=== PATIENT | female | born 2000 | race Caucasian/White ===

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

== ENCOUNTER 2020-06-23 21:37 | Emergency (ER) | payer SELFPAY ==
[2020-06-23] MEDS ORDERED: ACETAMINOPHEN 325 MG TABLET PO ONE (22:19)
--- NOTE | 2020-06-23 22:20 | ER Document Report ---
ED Medical Screen (RME) - General Chief Complaint: Abscess Stated Complaint: POSSIBLE ABSCESS Time Seen by Provider: 06/23/20 22:16 Mode of Arrival: Ambulatory Information source: Patient Notes: HPI; 19-year-old female presents to the emergency room complaining of a vaginal cyst for the past 3 days. No history of previous abscesses. States symptoms got worse after performing masturbation earlier today. Denies any vaginal discharge. No fevers. No urinary symptoms. PE: Alert and oriented x3. Mild distress noted. Lungs: Clear to auscultation without rales, rhonchi, wheezes. Heart: Regular rate rhythm without murmurs, rubs, gallops. Unable to do full assessment in triage. I have greeted and performed a rapid initial assessment of this patient. A comprehensive ED assessment and evaluation of the patient, analysis of test results and completion of the medical decision making process will be conducted by additional ED providers. I have specifically instructed the patient or family members with the patient to immediately return to any nursing staff should anything change in the patient's condition or with their chief complaint. TRAVEL OUTSIDE OF THE [place] IN LAST 30 DAYS: No - Related Data Allergies/Adverse Reactions: No Known Allergies Allergy (Verified 04/25/17 17:07) Past Medical History Renal/ Medical History: Denies: Hx Peritoneal Dialysis Physical Exam - Vital signs Vitals: Temp Pulse Resp BP Pulse Ox 98.9 F 87 18 123/95 H 97 06/23/20 21:51 06/23/20 21:51 06/23/20 21:51 06/23/20 21:51 06/23/20 21:51 Course - Vital Signs Vital signs: Temp Pulse Resp BP Pulse Ox 98.9 F 87 18 123/95 H 97 06/23/20 21:51 06/23/20 21:51 06/23/20 21:51 06/23/20 21:51 06/23/20 21:51
[2020-06-23 23:31] LABS: APPEARANCE,URINE SLIGHTLY-CLOUDY; BILIRUBIN,URINE NEGATIVE (NEGATIVE); COLOR,URINE YELLOW; GLUCOSE, URINE NEGATIVE (NEGATIVE); KETONES,URINE NEGATIVE (NEGATIVE); LEUKOCYTE ESTERASE,URINE NEGATIVE (NEGATIVE); NITRITE,URINE NEGATIVE (NEGATIVE); PROTEIN,URINE NEGATIVE (NEGATIVE); URINE SPECIFIC GRAVITY 1.018; UROBILINOGEN,URINE NEGATIVE mg/dL (<2.0)
[2020-06-24] MEDS ORDERED: LIDOCAINE 1% INJ-PF (10 MG/ML) 30 ML SDV INJ ONE (03:24)
[2020-06-24] MEDS ORDERED: CEFTRIAXONE INJ 250 MG VIAL IM ONE (05:05)
[2020-06-24] MEDS ORDERED: DOXYCYCLINE HYCLATE 100 MG TABLET PO ONE (05:05)
[2020-06-24 05:19] LABS: EPITHELIALS (WET MOUNT) 3+ EPITHELIALS SEEN; T.VAGINALIS (WET MOUNT) NO TRICHOMONAS SEEN; WBCS (WET MOUNT) FEW WBCS SEEN; YEAST (WET MOUNT) NO YEAST SEEN
--- NOTE | 2020-06-24 05:50 | ER Document Report ---
ED General - General Mode of Arrival: Ambulatory TRAVEL OUTSIDE OF THE [place] IN LAST 30 DAYS: No - General Chief Complaint: Vaginal Pain Stated Complaint: POSSIBLE ABSCESS Time Seen by Provider: 06/23/20 22:16 Primary Care Provider: RAFI BOWLES MD [ACTIVE PROVISIONAL STAFF] - Follow up as needed - [facility] Notes: 19-year-old female with no significant past medical history presents with gradual onset gradually worsening constant moderate vaginal pain and pelvic pain without associated symptoms aggravated by intercourse for the past several days. Patient says it feels like there is a bump inside her vagina, but she has not felt a bump just vaginal pain. Patient is monogamous without protection with one partner, but she has suspected that partner has been cheating on her. Patient denies any fever, vomiting, abdominal pain, STD history, discharge, immune compromise history, prior episodes (WILFREDO OV) - Related Data Allergies/Adverse Reactions: No Known Allergies Allergy (Verified 04/25/17 17:07) Past Medical History - General Information source: Patient - Social History Smoking Status: Never Smoker Family History: Reviewed & Not Pertinent Patient has homicidal ideation: No Renal/ Medical History: Denies: Hx Peritoneal Dialysis Review of Systems - Review of Systems Notes: REVIEW OF SYSTEMS: CONSTITUTIONAL : Denies fever, chills, or sweats. EENT: Denies recent cold/sinus symptoms, denies throat pain CARDIOVASCULAR: Denies chest pain, YEYO RESPIRATORY: Denies cough, denies shortness of breath. GASTROINTESTINAL: Denies abdominal pain, nausea/vomiting. GENITOURINARY: Denies difficulty urinating, painful urination. FEMALE GENITOURINARY: Denies abnormal vaginal bleeding, vaginal discharge. MUSCULOSKELETAL: Denies neck pain, back pain. SKIN: Denies rash or skin lesions. HEMATOLOGIC : Denies easy bruising or bleeding. LYMPHATIC: Denies swollen, enlarged glands. NEUROLOGICAL: Denies headache, denies change in gait. PSYCHIATRIC: Denies anxiety or stress or depression. (WILFREDO VO) Physical Exam - Vital signs Vitals: Temp Pulse Resp BP Pulse Ox 98.9 F 87 18 123/95 H 97 06/23/20 21:51 06/23/20 21:51 06/23/20 21:51 06/23/20 21:51 06/23/20 21:51 - Notes Notes: PHYSICAL EXAMINATION: GENERAL: Well-appearing, well-nourished and in no acute distress. HEAD: Atraumatic, normocephalic. EYES: Pupils equal round and appropriate constriction, sclera anicteric, conjunctiva are normal. ENT: nares patent, moist mucous membranes. NECK: Normal range of motion, supple without lymphadenopathy LUNGS: Breath sounds clear to auscultation bilaterally and equal. No wheezes rales or rhonchi. HEART: Regular rate and rhythm without murmurs ABDOMEN: Soft, nontender, no guarding, no masses, no CVAT, rectal exam nontender and no masses or discharge PELVIC: Copious white discharge in vaginal vault with slight erythema of the office, no active discharge from office, no CMT, mild left adnexal tenderness, no adnexal masses EXTREMITIES: Normal range of motion, no pitting or edema. No cyanosis. NEUROLOGICAL: Awake, alert, conversing appropriately, moves all extremities spontaneously. PSYCH: Normal mood, normal affect. SKIN: Warm, Dry, normal turgor, no rashes or lesions noted. Exam chaperoned by JR Tapia. (WILFREDO VO) Course - Re-evaluation Re-evalutation: 06/24/20 05:48 Presentation concerning for possible GC with PID, rule out TOA. Will give empiric antibiotics and obtain transvaginal ultrasound. Patient very well- appearing otherwise, able to be treated for PID on outpatient basis. First dose of doxy given here and ceftriaxone given. No Bartholin cyst gland abscess present. No systemic symptoms. No risk factors for complicated course. 06/24/20 06:32 Patient with evidence of hemorrhagic cyst rupture with hemoperitoneum on ultrasound. Spoke to patient about this and she does say now that she had sudden onset of pain approximately 12 hours ago but that it has been nearly resolved for the past 9 hours. Because of this I canceled ordering a CBC as there is no reason to think that patient would require intervention as her symptoms have dramatically improved since onset and she has no symptoms of blood loss. Will give patient copy of ultrasound report and information to follow-up with environmental manager. Patient declined HIV test. (WILFREDO VO) - Vital Signs Vital signs: Temp Pulse Resp BP Pulse Ox 98.5 F 78 16 140/70 H 98 06/24/20 06:54 06/24/20 06:54 06/24/20 06:54 06/24/20 06:54 06/24/20 06:54 - Laboratory Laboratory results interpreted by me: 06/23/20 06/24/20 22:56 04:50 Urine Blood MODERATE H Chlamydia DNA (PCR) DETECTED H Discharge - Discharge Clinical Impression: Hemorrhagic cyst, Pelvic pain Disposition: HOME, SELF-CARE Additional Instructions: Ovarian Cyst Your examination shows the presence of an ovarian cyst. This is a ball of fluid attached to the ovary. Ovarian cysts in women of child-bearing age are usually innocent. However, the cyst may cause pain when it grows or bursts. An innocent ovarian cyst will usually go away by itself. When the cyst becomes painful, you should rest. Pain medication may be required. Some women find a hot water bottle soothing. The pain usually resolves within one or two days. After menopause, an ovarian cyst may mean a tumor, and requires more aggressive evaluation -- usually surgery is recommended to remove or biopsy the cyst. A very large cyst requires evaluation at any age. Most cysts (even the innocent ones) require follow-up examination. Call the doctor or return at any time if the pain increases significantly, if you become faint, or if you experience vaginal bleeding. It is still possible that you may have pelvic inflammatory disease from gonorrhea or chlamydia. Take all antibiotics as prescribed. Call for gonorrhea chlamydia test result. If positive do not have unprotected sex until you and your partner both been treated. follow-up with environmental manager within 1 week. If you have any worsening pain, weakness, lightheadedness, fainting, vaginal bleeding, vomiting, or any other worsening or alarming symptoms return to the emergency department immediately Prescriptions: Doxycycline Monohydrate 100 mg PO BID 14 Days #28 capsule Forms: Return to Work Referrals: RAFI BOWLES MD [ACTIVE PROVISIONAL STAFF] - Follow up as needed
--- NOTE | 2020-06-24 06:07 | RADIOLOGY REPORT (SQ) ---
EXAM: US Pelvis Transvaginal EXAM DATE/TIME: 06/24/2020 5:28 AM CLINICAL HISTORY: The patient is 19 years old and is Female; transvaginal US pelvic pain discharge r/o TOA TECHNIQUE: Real-time transvaginal pelvic ultrasound with image documentation. Transvaginal imaging was used for better evaluation of the endometrium and adnexa. COMPARISON: No relevant prior studies available. FINDINGS: UTERUS/CERVIX: The uterus measures 8.1 x 4.5 x 3.7 cm. No myometrial mass. Endometrial stripe measures 3 mm. The cervix is unremarkable. RIGHT OVARY: The right ovary measures 4.5 cm in diameter on one image. On image 30/50, right ovarian diameters are measured at 4.5 and 2.1 cm, though the measured structure has a somewhat atypical appearance for an ovary. This atypical appearance could be due to a mass within or adjacent to the right ovary. However, the right ovary appears normal on the remaining images. Therefore, this appearance could be artifactual. Blood flow is demonstrated in the ovary. LEFT OVARY: The left ovary measures 5.2 x 4.0 x 3.9 cm. There is a complex cystic area in the left ovary measuring 4.7 x 3.3 cm. The appearance suggests a hemorrhagic cyst. Blood flow is demonstrated in the region of peripheral ovarian parenchyma. FREE FLUID: Fluid is present in the bilateral atelectasis and regions and posterior cul-de-sac. BLADDER: Empty bladder which cannot be evaluated with this probe. IMPRESSION: 1. Complex cystic area in the left ovary measuring 4.7 cm. The appearance suggests a hemorrhagic cyst. Recommend pelvic US follow-up in 6-12 weeks; if unchanged, continue follow-up with US OR MRI with IV contrast. Reference: Radiology 2010 Sep;256(3):943-54 2. Right ovary appears masslike on one image but appears normal on the remaining available images. Therefore, the appearance on this single image is favored to be artifactual. However, recommend attention on follow-up ultrasound. 3. Free fluid in the pelvis. 4. No sonographic evidence of ovarian torsion.
[2020-06-24 06:43] LABS: CHLAM PCR DETECTED (NOT DETECT)
[2020-06-24 06:55] VITALS: BP 140/70
== END 2020-06-24 06:55 | disposition home or self-care (01) ==
LOC: ER 21:37
DX: N83.202 Unspecified ovarian cyst, left side (principal); R10.2 Pelvic and perineal pain; Z20.2 Contact with and (suspected) exposure to infections with a predominantly sexual mode of transmission
CPT/HCPCS: 99285; 96372; 36415; 87070; 87205; 87210; 81025; 87077; 81001; 87491; 87591; 76856; J0696

== ENCOUNTER 2020-07-25 06:57 | Emergency (ER) | payer OTHER ==
[2020-07-25 08:16] LABS: ABSOLUTE BASOPHILS # (AUTO) 0.1 10^3/uL (0.0-0.2); ABSOLUTE EOSINOPHILS # (AUTO) 0.2 10^3/uL (0.0-0.6); ABSOLUTE LYMPHOCYTES (AUTO) 3.1 10^3/uL (0.5-4.7); ABSOLUTE NEUT (AUTO) 8.6 10^3/uL (1.7-8.2); BASOPHILS % (AUTO) 0.7 % (0-2); EOSINOPHILS % (AUTO) 1.7 % (0-6); HEMATOCRIT 43.2 % (36.0-47.0); HEMOGLOBIN 14.8 g/dL (12.0-15.5); LYMPHOCYTES % (AUTO) 23.7 % (13-45); MEAN CORPUSCULAR HEMOGLOBIN 32.4 pg (27.0-33.4); MEAN CORPUSCULAR HGB CONC 34.3 g/dL (32.0-36.0); MEAN CORPUSCULAR VOLUME 95 fl (80-97); MONOCYTES % (AUTO) 7.5 % (3-13); PLATELET COUNT 213 10^3/uL (150-450); RED BLOOD COUNT 4.56 10^6/uL (3.72-5.28); RED CELL DISTRIBUTION WIDTH 13.2 % (11.5-14.0); SEGMENTED NEUTROPHILS % (AUTO) 66.4 % (42-78); TOTAL CELLS COUNTED % (AUTO) 100 %
[2020-07-25 08:33] LABS: ALBUMIN 4.9 g/dL (3.5-5.0); ALKALINE PHOSPHATASE 80 U/L (38-126); ANION GAP 13 (5-19); ASPARTATE AMINO TRANSFERASE 26 U/L (14-36); BILIRUBIN,DIRECT 0.2 mg/dL (0.0-0.4); BILIRUBIN,TOTAL 1.2 mg/dL (0.2-1.3); BLOOD UREA NITROGEN 15 mg/dL (7-20); CARBON DIOXIDE 24 mmol/L (22-30); CHLORIDE 103 mmol/L (98-107); GLUCOSE 96 mg/dL (75-110); POTASSIUM 3.5 mmol/L (3.6-5.0); TOTAL PROTEIN 8.1 g/dL (6.3-8.2)
--- NOTE | 2020-07-25 08:54 | RADIOLOGY REPORT (SQ) ---
EXAM DESCRIPTION: U/S CHEST IMAGES COMPLETED DATE/TIME: 07/25/2020 8:35 am REASON FOR STUDY: right breast mass/abscess COMPARISON: None. TECHNIQUE: Dynamic and static grayscale images acquired of the localized site of clinical concern an d recorded on PACS. Additional selected color Doppler and spectral images recorded. SITE OF CONCERN: Right breast LIMITATIONS: None. FINDINGS: SKIN AND SUBCUTANEOUS TISSUES: A heterogeneously hypoechoic region in the right breast was suspected at the time of exam measuring approximately 4.3 x 4.2 x 1.9 cm, corresponding to the patie nt's area of concern. No increased vascularity in the area. DEEP SOFT TISSUES/MUSCLES: No masses. No fluid collections. No edema. VASCULAR: No increased or decreased vascularity. No occlusions. OTHER: No other significant finding. IMPRESSION: Nonspecific nonvascular heterogeneously hypoechoic region in the right breast measuring approximately 4.3 x 4.2 x 1.9 cm. No evidence for abscess. Correlate with clinical breast examinati on. TECHNICAL DOCUMENTATION: JOB ID: [id number] 2010 [employer]- All Rights Reserved Reading location - IP/workstation name: [email or web address]
--- NOTE | 2020-07-25 09:37 | ER Document Report ---
Entered by THOMAS DOSHI SCRIBE 07/25/20 0746 Acting as scribe for:RUI ESCAMILLA MD ED Breast Problem - General Chief Complaint: Breast Lump Stated Complaint: LUMP ON RIGHT BREAST Mode of Arrival: Ambulatory Information source: Patient Notes: This 20 year old female patient presents to the ED today with complaints of x2 lumps on her right breast that she noticed x6 days ago. Patient states that the lumps have become bigger and more painful since onset. She reports a family history of malignancy. Denies fever, chills, headache, nausea/vomiting/diarrhea, sore throat, cough, nipple discharge, or any open wounds. No medications. TRAVEL OUTSIDE OF THE [place] IN LAST 30 DAYS: No - Related Data Allergies/Adverse Reactions: No Known Allergies Allergy (Verified 07/25/20 07:02) Past Medical History - General Information source: Patient - Social History Smoking Status: Current Some Day Smoker Smoking Education Provided: No Frequency of alcohol use: Occasional Drug Abuse: Marijuana Family History: Reviewed & Not Pertinent, Malignancy Patient has suicidal ideation: No Patient has homicidal ideation: No Renal/ Medical History: Reports: Hx Ovarian Cysts Review of Systems - Review of Systems Constitutional: See HPI. denies: Chills, Fever EENT: See HPI. denies: Throat pain Cardiovascular: No symptoms reported Respiratory: See HPI. denies: Cough Gastrointestinal: See HPI. denies: Diarrhea, Nausea, Vomiting Genitourinary: No symptoms reported Female Genitourinary: No symptoms reported Musculoskeletal: No symptoms reported Skin: See HPI, Lumps Hematologic/Lymphatic: No symptoms reported Neurological/Psychological: See HPI. denies: Headaches -: Yes All other systems reviewed and negative Physical Exam - Vital signs Vitals: Temp Pulse Resp BP Pulse Ox 98.4 F 86 16 135/73 H 99 07/25/20 07:00 07/25/20 07:00 07/25/20 07:00 07/25/20 07:00 07/25/20 07:00 - General General appearance: Appears well, Alert In distress: None - HEENT Head: Normocephalic, Atraumatic Eyes: Normal Extraocular movements intact: Yes Pupils: PERRL - Respiratory Respiratory status: No respiratory distress Chest status: Nontender Breath sounds: Normal Chest palpation: Normal - Cardiovascular Rhythm: Regular Heart sounds: Normal auscultation, S1 appreciated, S2 appreciated Murmur: No Friction rub: No Gallop: None auscultated - Abdominal Inspection: Normal Distension: No distension Bowel sounds: Normal Tenderness: Nontender - Abdomen soft Organomegaly: No organomegaly - Back Back: Normal, Nontender - Extremities General upper extremity: Normal inspection General lower extremity: Normal inspection. No: Edema - Neurological Neuro grossly intact: Yes Orientation: AAOx4 [place] Coma Scale Eye Opening: Spontaneous [place] Coma Scale Verbal: Oriented [place] Coma Scale Motor: Obeys Commands [place] Coma Scale Total: 15 - Psychological Associated symptoms: Normal affect, Normal mood - Skin Skin Temperature: Warm Skin Moisture: Dry Skin Color: Normal Skin irregularity: Tender indurated area - 6 x 3.5 cm firm area noted between the 11 and 2 o'clock position on the right breast. Mild tenderness to palpation. No redness, ecchymosis, abnormal color, or bulging/protruding above the skin line. No nipple discharge. No lymphadenopathy appreciated of the axilla or supraclavicular area. 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 - Vital Signs Vital signs: Temp Pulse Resp BP Pulse Ox 98.4 F 86 16 135/73 H 99 07/25/20 07:02 07/25/20 07:00 07/25/20 07:00 07/25/20 07:00 07/25/20 07:00 07/25/20 09:32 Vital signs are stable. Afebrile. - Laboratory Result Diagrams: 07/25/20 07:55 07/25/20 07:55 Laboratory results interpreted by me: 07/25/20 09:35 Patient's laboratories are within normal limits except for a 13,000 white blood cell count. Patient denies any fever chills cough diarrhea nausea vomiting. Denies any urinary symptoms as well. Or rash. Most likely the leukocytosis is due to stress as patient is stressed about this right breast mass. Patient advised if she develops symptoms of infection or inflammation she should be reevaluated. - Diagnostic Test Radiology reviewed: Image reviewed, Reports reviewed Radiology results interpreted by me: 07/25/20 09:01 Chest Ultrasound 07/25/20 07:55 IMPRESSION: Nonspecific nonvascular heterogeneously hypoechoic region in the right breast measuring approximately 4.3 x 4.2 x 1.9 cm. No evidence for abscess. Correlate with clinical breast examination. 07/25/20 09:32 Ultrasound report read by radiologist shows heterogeneously right breast mass 4 x 4 x 1.9 cm recommended clinical correlation. I advised patient that she needs to find a primary care provider and I recommended the [facility] for her inasmuch as she does not have insurance. Recommend patient seek medical attention to have further definition with a mammogram of right breast. Discharge - Discharge Clinical Impression: Breast mass in female Condition: Stable Disposition: HOME, SELF-CARE Additional Instructions: Breast Lumps There is a lump in your breast. We realize this will worry you. Most breast masses are not cancer. Most breast masses are fibrocystic disease, simple cysts, or fibroadenoma, which are benign. The first step is usually a mammogram or ultrasound of the breast. Your private physician, or a surgeon, can complete the evaluation. Be sure to keep your follow-up appointment. If the lump is malignant, early removal is your best chance of a cure. Referrals: LIGIA COLON MD [HONORARY] - Follow up tomorrow I personally performed the services described in the documentation, reviewed and edited the documentation which was dictated to the scribe in my presence, and it accurately records my words and actions.
[2020-07-25 09:55] VITALS: BP 121/70
[2020-07-25 10:07] LABS: APPEARANCE,URINE CLEAR; BILIRUBIN,URINE NEGATIVE (NEGATIVE); COLOR,URINE YELLOW; GLUCOSE, URINE NEGATIVE (NEGATIVE); KETONES,URINE NEGATIVE (NEGATIVE); LEUKOCYTE ESTERASE,URINE NEGATIVE (NEGATIVE); NITRITE,URINE NEGATIVE (NEGATIVE); PROTEIN,URINE NEGATIVE (NEGATIVE); URINE SPECIFIC GRAVITY 1.016; UROBILINOGEN,URINE NEGATIVE mg/dL (<2.0)
== END 2020-07-25 09:48 | disposition home or self-care (01) ==
LOC: ER 06:57
DX: N63.0 Unspecified lump in unspecified breast (principal); D72.829 Elevated white blood cell count, unspecified; F17.200 Nicotine dependence, unspecified, uncomplicated; F12.10 Cannabis abuse, uncomplicated; Z80.9 Family history of malignant neoplasm, unspecified
CPT/HCPCS: 36415; 76604; 80053; 81001; 84702; 85025; 99284

== ENCOUNTER 2020-08-08 09:04 | Emergency (ER) | payer OTHER ==
[2020-08-08 10:14] LABS: BACTERIA (WET MOUNT) 4+ BACTERIA SEEN; EPITHELIALS (WET MOUNT) 4+ EPITHELIALS SEEN; T.VAGINALIS (WET MOUNT) NO TRICHOMONAS SEEN; WBCS (WET MOUNT) FEW WBCS SEEN; YEAST (WET MOUNT) NO YEAST SEEN
[2020-08-08 10:26] LABS: ABSOLUTE EOSINOPHILS # (AUTO) 0.1 10^3/uL (0.0-0.6); ABSOLUTE LYMPHOCYTES (AUTO) 1.2 10^3/uL (0.5-4.7); ABSOLUTE MONOCYTES (AUTO) 1.2 10^3/uL (0.1-1.4); ABSOLUTE NEUT (AUTO) 10.7 10^3/uL (1.7-8.2); BASOPHILS % (AUTO) 0.3 % (0-2); HEMATOCRIT 40.4 % (36.0-47.0); HEMOGLOBIN 14.1 g/dL (12.0-15.5); LYMPHOCYTES % (AUTO) 9.3 % (13-45); MEAN CORPUSCULAR HEMOGLOBIN 32.8 pg (27.0-33.4); MEAN CORPUSCULAR VOLUME 94 fl (80-97); MONOCYTES % (AUTO) 8.7 % (3-13); PLATELET COUNT 193 10^3/uL (150-450); RED BLOOD COUNT 4.31 10^6/uL (3.72-5.28); RED CELL DISTRIBUTION WIDTH 13.3 % (11.5-14.0); SEGMENTED NEUTROPHILS % (AUTO) 80.7 % (42-78); TOTAL CELLS COUNTED % (AUTO) 100 %; WHITE BLOOD COUNT 13.2 10^3/uL (4.0-10.5)
[2020-08-08 10:28] LABS: APPEARANCE,URINE CLEAR; BILIRUBIN,URINE NEGATIVE (NEGATIVE); COLOR,URINE YELLOW; GLUCOSE, URINE NEGATIVE (NEGATIVE); KETONES,URINE NEGATIVE (NEGATIVE); LEUKOCYTE ESTERASE,URINE NEGATIVE (NEGATIVE); NITRITE,URINE NEGATIVE (NEGATIVE); PROTEIN,URINE NEGATIVE (NEGATIVE); URINE SPECIFIC GRAVITY 1.013; UROBILINOGEN,URINE NEGATIVE mg/dL (<2.0)
[2020-08-08] MEDS ORDERED: KETOROLAC TROMETHAMINE INJ/PF 30 MG/1 ML SDV IM ONE (10:37)
[2020-08-08] MEDS ORDERED: NORMAL SALINE 1000 ML 1,000 ML IV ONE (10:37)
--- NOTE | 2020-08-08 10:37 | ER Document Report ---
ED General - General Chief Complaint: Pelvic Pain Stated Complaint: ABDOMINAL PAIN/CONGESTION Primary Care Provider: [facility] [Provider Group] - Follow up as needed MICHELLE HOOKER MD [ACTIVE STAFF] - Follow up as needed Notes: 20-year-old female presenting today with right lower quadrant pain and vaginal swelling. She states that she had this pain and similar presentation when she was diagnosed with chlamydia. She states that the right lower quadrant pain started this morning. She states that she is not currently in pain. But the pain does occur when she walks. Is described as a cramping pain. Approximately a month ago she was diagnosed with a hemorrhagic ruptured today been diagnosed with an ovarian cyst and chlamydia. She was treated for the chlamydia. Patient reports that she is in a monogamous relationship for 4 years. She does not know what her significant other is doing. She states she has had some pain to the vaginal area on specific spot and some left-sided swelling. She denies any discharge. Last menstrual period ended 2 weeks ago. Denies any fever, chills or additional symptoms at this time. No nausea or vomiting. She does report that she has had sinus congestion and a productive cough for 1 day. She denies any sore throat. TRAVEL OUTSIDE OF THE [place] IN LAST 30 DAYS: No - Related Data Allergies/Adverse Reactions: No Known Allergies Allergy (Verified 07/25/20 07:02) Past Medical History - Social History Smoking Status: Never Smoker Family History: Reviewed & Not Pertinent, Malignancy Renal/ Medical History: Reports: Hx Ovarian Cysts. Denies: Hx Peritoneal Dialysis Review of Systems - Review of Systems Constitutional: No symptoms reported EENT: No symptoms reported Cardiovascular: No symptoms reported Respiratory: No symptoms reported Gastrointestinal: See HPI Genitourinary: No symptoms reported Female Genitourinary: See HPI Musculoskeletal: No symptoms reported Skin: No symptoms reported Hematologic/Lymphatic: No symptoms reported Neurological/Psychological: No symptoms reported Physical Exam - Vital signs Vitals: Temp Pulse Resp BP Pulse Ox 98.4 F 118 H 20 130/65 H 98 08/08/20 09:11 08/08/20 09:11 08/08/20 09:11 08/08/20 09:11 08/08/20 09:11 Interpretation: Tachycardic - Notes Notes: Pelvic Exam Health Plan Specialist was Kaykay NORRIS Adult General: GENERAL: Alert, interacts well. No acute distress HEAD: Normocephalic, atraumatic EYES: Pupils equal, round and reactive to light. Extraocular movements intact. ENT: Oral mucosa moist, tongue midline. Oropharynx unremarkable. Airway patent. Nares patent, sinuses nontender, ear canals unremarkable, TMs intact. No Trismus. NECK: Full range of motion. Supple. Trachea midline. No lymphadenopathy. LUNGS: Clear to auscultation bilaterally, no wheezes, rales, or rhonchi. No respiratory distress. Nontender chest wall. HEART: Regular rate and rhythm. No murmurs, rubs or gallops. ABDOMEN: Soft, non tender. Nondistended. (-) Davis sign. Bowel sounds present in all 4 quadrants. No rebound, guarding or masses. GENITOURINARY: No vaginal swelling, or discharge, (+) chandlier sign. No cysts or abscess noted. EXTREMITIES: Moves all 4 extremities spontaneously. No edema, normal radial and dorsal pedis pulses bilaterally. No cyanosis. BACK: Moves all extremities with full range of motion. NEUROLOGICAL: Alert and oriented x3. Normal speech. Strength 5/ 5 in all extremities. PSYCH: Normal affect, normal mood. SKIN: Warm, dry, normal turgor. No rashes or lesions noted. Course - Re-evaluation Re-evalutation: 08/08/20 14:30 Patient's transvaginal ultrasound shows resolution of left ovarian hemorrhagic cyst. It does show anechoic tubular structure in the right adnexa. Likely short segment of hydro-salpinx but cannot rule out tubo-ovarian abscess. CT scan ordered for further evaluation. I received a call from the radiologist she is uncertain if this is a tubo-ovarian abscess. I called Dr. Hooker who is on- call for [employer] MACHINE OPERATOR HELPER and she recommends starting patient on doxycycline and Flagyl and having her follow-up outpatient in the office tomorrow. I will go ahead and order medications for the patient and add IM Rocephin. I discussed these findings at length with the patient. She is in agreements with the plan being started on antibiotic treatment and following up with Dr. Hooker with [facility] tomorrow. Her gonorrhea and chlamydia is negative. All questions answered. - Vital Signs Vital signs: Temp Pulse Resp BP Pulse Ox 98.8 F 79 14 124/90 H 97 08/08/20 15:29 08/08/20 15:29 08/08/20 15:29 08/08/20 15:29 08/08/20 15:29 - Laboratory Result Diagrams: 08/08/20 10:13 08/08/20 10:13 Laboratory results interpreted by me: 08/08/20 08/08/20 10:10 10:13 WBC 13.2 H Lymph % (Auto) 9.3 L Absolute Neuts (auto) 10.7 H Seg Neutrophils % 80.7 H Urine Blood LARGE H Discharge - Discharge Clinical Impression: Pelvic inflammatory disease (PID) Condition: Stable Disposition: HOME, SELF-CARE Instructions: Antibiotic Therapy ([facility]) Additional Instructions: Your CT scan shows findings I cannot rule out tubo-ovarian abscess. I did discuss with the on-call ESCROW SECRETARY provider. She has provided guidance in regards to the antibiotics to start now and recommends that you follow-up at the clinic tomorrow. I have provided you the information for this clinic. Please take the antibiotics as prescribed. Please return to the emergency department for worsening symptoms or development of new symptoms. You can use Tylenol and ibuprofen for pain relief. Prescriptions: Benzonatate [Tessalon Perles 100 mg Capsule] 100 mg PO Q8HP PRN #40 capsule PRN Reason: Doxycycline Monohydrate 100 mg PO BID 14 Days #28 capsule Metronidazole [Flagyl 500 mg Tablet] 500 mg PO BID #14 tablet Forms: Return to Work Referrals: MICHELLE HOOKER MD [ACTIVE STAFF] - Follow up as needed [facility] [Provider Group] - Follow up as needed
[2020-08-08 10:42] LABS: ALBUMIN 4.5 g/dL (3.5-5.0); ALKALINE PHOSPHATASE 81 U/L (38-126); ANION GAP 10 (5-19); ASPARTATE AMINO TRANSFERASE 21 U/L (14-36); BILIRUBIN,DIRECT 0.2 mg/dL (0.0-0.4); BILIRUBIN,TOTAL 0.6 mg/dL (0.2-1.3); BLOOD UREA NITROGEN 12 mg/dL (7-20); CALCIUM 9.6 mg/dL (8.4-10.2); CARBON DIOXIDE 23 mmol/L (22-30); CHLORIDE 105 mmol/L (98-107); GLUCOSE 108 mg/dL (75-110); POTASSIUM 3.6 mmol/L (3.6-5.0); TOTAL PROTEIN 7.4 g/dL (6.3-8.2)
--- NOTE | 2020-08-08 11:09 | RADIOLOGY REPORT (SQ) ---
EXAM DESCRIPTION: CHEST SINGLE VIEW IMAGES COMPLETED DATE/TIME: 08/08/2020 10:53 am REASON FOR STUDY: cough COMPARISON: None. EXAM PARAMETERS: NUMBER OF VIEWS: One view. TECHNIQUE: Single frontal radiographic view of the chest acquired. RADIATION DOSE: NA LIMITATIONS: None. FINDINGS: LUNGS AND PLEURA: No opacities, masses or pneumothorax. No pleural effusion. MEDIASTINUM AND HILAR STRUCTURES: No masses. Contour normal. HEART AND VASCULAR STRUCTURES: Heart normal in size. Normal vasculature. BONES: No acute findings. HARDWARE: None in the chest. OTHER: No other significant finding. IMPRESSION: NO ACUTE RADIOGRAPHIC FINDING IN THE CHEST. TECHNICAL DOCUMENTATION: JOB ID: [id number] 2010 [email or web address]- All Rights Reserved Reading location - IP/workstation name: [email or web address]
[2020-08-08 11:40] LABS: CHLAM PCR NOT DETECTED (NOT DETECT)
--- NOTE | 2020-08-08 13:09 | RADIOLOGY REPORT (SQ) ---
EXAM DESCRIPTION: U/S NON OB PEL TV W/DOPPLER IMAGES COMPLETED DATE/TIME: 08/08/2020 12:43 pm REASON FOR STUDY: right lower quadrant pain COMPARISON: Pelvic ultrasound 06/24/2020 TECHNIQUE: Dynamic and static grayscale images acquired of the pelvis via transvaginal approach and recorded on PACS. Additional selected color Doppler and spectral images recorded. LIMITATIONS: None. FINDINGS: UTERUS: Contour normal. No mass. Uterus measures 6 x 5 x 4 cm size ENDOMETRIAL STRIPE: No focal or generalized thickening. No masses. Endometrium 16 mm thickness CERVIX: Closed, 2.5 cm in length. No nabothian cysts. RIGHT OVARY AND DOPPLER: Right ovary is 6.3 x 4.1 x 3.7 cm size, with multiple subcentimeter follicle s, largest follicle 2 cm size. Normal right ovary color flow and arterial Doppler waveforms suggests torsion. Immediately adjacent to the right ovary, a tubular fluid-filled structure is present without peristal sis. This measures about 3 x 2 x 2.5 cm. This could represent a short segment of hydrosalpinx. Tub o-ovarian abscess could not entirely be excluded. This is similar compared to ultrasound 06/24/2020. LEFT OVARY AND DOPPLER: Left ovary is 3 x 3 x 2.7 cm size. Normal left ovary color flow and arterial Doppler waveforms suggests against torsion. The 5 cm hemorrhagic left ovarian seen on prior ultrasound 06/24/2020 has resolved. FREE FLUID: None noted. OTHER: No other significant finding. IMPRESSION: 5 cm hemorrhagic cyst left ovary seen on 06/24/2020 has resolved Anechoic tubular structure in the right adnexa likely a short segment of hydrosalpinx. Tubo-ovarian abscess could not entirely be excluded. Similar compared to prior ultrasound 06/24/2020. TECHNICAL DOCUMENTATION: JOB ID: [id number] 2010 [employer]- All Rights Reserved Rev-03/29 Reading location - IP/workstation name: [id number]
--- NOTE | 2020-08-08 14:12 | RADIOLOGY REPORT (SQ) ---
EXAM DESCRIPTION: CT ABD/PELVIS WITH IV ONLY IMAGES COMPLETED DATE/TIME: 08/08/2020 1:59 pm REASON FOR STUDY: concern for TOA COMPARISON: Pelvic ultrasound 06/24/2020, 08/08/2020 TECHNIQUE: CT scan of the abdomen and pelvis performed using helical scanning technique with dynamic intravenous contrast injection. No oral contrast. Images reviewed with lung, soft tissue, and bone windows. Reconstructed coronal and sagittal MPR images reviewed. Delayed images for evaluation of the urinary system also acquired. All images stored on PACS. All CT scanners at this facility use dose modulation, iterative reconstruction, and/or weight based d osing when appropriate to reduce radiation dose to as low as reasonably achievable (ALARA). [facility]: Dose Right [facility]: CareDose [facility]: Dose Right [facility]: Teradose 4D [facility]: [employer] CONTRAST TYPE AND DOSE: contrast/concentration: Isovue 350.00 mmol/ml; Total Contrast Delivered: 86. 0 ml; Total Saline Delivered: 69.0 ml RENAL FUNCTION: Creatinine 0.6 RADIATION DOSE: CT Rad equipment meets quality standard of care and radiation dose reduction techniq ues were employed. CTDIvol: 7.0 - 9.8 mGy. DLP: 879 mGy-cm.. LIMITATIONS: No oral contrast FINDINGS: LOWER CHEST: No significant findings. No nodules or infiltrates. LIVER: Normal size. No masses. No dilated ducts. SPLEEN: Normal size. No focal lesions. PANCREAS: No masses. No significant calcifications. No adjacent inflammation or peripancreatic fluid collections. Pancreatic duct not dilated. GALLBLADDER: No identified stones by CT criteria. No inflammatory changes to suggest cholecystitis. ADRENAL GLANDS: No significant masses or asymmetry. RIGHT KIDNEY AND URETER: No solid masses. No significant calcifications. No hydronephrosis or hyd roureter. LEFT KIDNEY AND URETER: No solid masses. No significant calcifications. No hydronephrosis or hydr oureter. AORTA AND VESSELS: No aneurysm. No dissection. Renal arteries, SMA, celiac without stenosis. RETROPERITONEUM: No retroperitoneal adenopathy, hemorrhage or masses. BOWEL AND PERITONEAL CAVITY: No masses or inflammatory changes. No free fluid or peritoneal masses. APPENDIX: Normal. PELVIS: In the right adnexum, a water density fluid filled tubular structure is present just dorsal t o the right ovary measuring about 3 x 2 cm. This correlates with ultrasound earlier today and likely represents a hydrosalpinx. Paraovarian cyst is possible. Tubo-ovarian abscess could not entirely b e excluded by imaging. No free cul-de-sac fluid. Uterus and ovaries are grossly normal size. No pelvic adenopathy. ABDOMINAL WALL: No masses. No hernias. BONES: No significant or acute findings. OTHER: No other significant finding. IMPRESSION: 3 x 2 cm fluid-filled structure dorsal to the right ovary, question hydrosalpinx versus paraovarian cyst. Tubo-ovarian abscess could not entirely excluded by imaging TECHNICAL DOCUMENTATION: JOB ID: [id number] Quality ID # [id number]: Final reports with documentation of one or more dose reduction techniques (e.g., Au tomated exposure control, adjustment of the mA and/or kV according to patient size, use of iterative reconstruction technique) 2010 [employer]- All Rights Reserved Reading location - IP/workstation name: [id number]
[2020-08-08] MEDS ORDERED: CEFTRIAXONE INJ 250 MG VIAL IM ONE (14:32)
[2020-08-08] MEDS ORDERED: KETOROLAC TROMETHAMINE INJ/PF 30 MG/1 ML SDV IV ONE (14:33)
[2020-08-08] MEDS ORDERED: LIDOCAINE 1% INJ (10 MG/ML) 10 ML MDV ONE (15:09)
[2020-08-08] MEDS ORDERED: LIDOCAINE 1% INJ (10 MG/ML) 10 ML MDV INJ ONE (15:26)
[2020-08-08 15:30] VITALS: BP 124/90
== END 2020-08-08 15:29 | disposition home or self-care (01) ==
LOC: ER 09:04
DX: N73.9 Female pelvic inflammatory disease, unspecified (principal); R10.2 Pelvic and perineal pain; R10.31 Right lower quadrant pain; R22.2 Localized swelling, mass and lump, trunk
CPT/HCPCS: 99285; 96372; 96361; 96374; 36415; 87210; 83690; 85025; 81025; 80053; 81001; 87491; 87591; 71045; 76830; 93976; 74177; J1885; J7030; J0696